=== PATIENT | male | born 1950 ===

== ENCOUNTER 2018-11-14 12:12 | Emergency (ER) | payer MEDICARE ==
[~2018-11-14] VITALS: Ht 170.2 cm; Wt 79.5 kg
[2018-11-14] MEDS ORDERED: METO25XL PO (12:29)
[2018-11-14] MEDS ORDERED: INSNOV SQ (12:29)
[2018-11-14] MEDS ORDERED: DONE5TAB5 PO (12:29)
[2018-11-14] MEDS ORDERED: DIVA250T45 PO (12:29)
[2018-11-14] MEDS ORDERED: PHOSLOC PO (12:29)
[2018-11-14] MEDS ORDERED: CINA30 PO (12:29)
[2018-11-14] MEDS ORDERED: DOCU250C91 PO (12:29)
[2018-11-14 12:49] LABS: BASOPHILS % (AUTO) 0.4 % (0.0-2.0); EOSINOPHILS % (AUTO) 1.3 % (1.0-6.0); HEMATOCRIT 32.4 % (41-53); LYMPHOCYTES # (AUTO) 1.5 K/uL (1.0-4.8); LYMPHOCYTES % (AUTO) 11.6 % (22.0-44.0); MEAN CORPUSCULAR HGB CONC 30.8 G/dL (31.0-37.0); MEAN CORPUSCULAR VOLUME 65 fL (80-100); MONOCYTES # (AUTO) 1.3 K/uL (0.1-1.0); MONOCYTES % (AUTO) 9.6 % (2.0-9.0); NEUTROPHILS # (AUTO) 10.1 K/uL (1.8-7.7); NEUTROPHILS % (AUTO) 77.1 % (40.0-70.0); PLATELET COUNT (AUTO) 450 K/uL (150-450); RED BLOOD CELL COUNT(AUTO) 4.98 MIL/uL (4.50-5.90); RED CELL DISTRIBUTION WIDTH 23.4 % (11.5-14.5)
[2018-11-14 12:54] LABS: CALCIUM, TOTAL 10.1 mg/dL (8.8-10.5); CREATININE 8.28 mg/dL (0.60-1.30); POTASSIUM 4.3 mmol/L (3.5-5.1)
[2018-11-14 13:00] LABS: ALBUMIN 2.3 g/dL (3.4-5.0); BILIRUBIN,TOTAL 0.7 mg/dL (0.1-1.0); TOTAL PROTEIN, SERUM 7.5 g/dL (6.4-8.2)
[2018-11-14] MEDS ORDERED: DiphenhydrAMINE HCL 25 MG CAPSULE PO ONE (13:30)
[2018-11-14 13:40] VITALS: BP 166/78
== END 2018-11-14 14:20 | disposition home or self-care (01) ==
LOC: EMS 12:12
DX: M25.551 Pain in right hip (principal); M25.552 Pain in left hip; E11.22 Type 2 diabetes mellitus with diabetic chronic kidney disease; N18.6 End stage renal disease; Z79.899 Other long term (current) drug therapy; Z99.2 Dependence on renal dialysis
CPT/HCPCS: 72170